=== PATIENT | male | born 1965 | race African-American/Black ===

== ENCOUNTER → 2017-01-06 | Outpatient (CLI) | payer BC ==
--- NOTE | 2017-01-06 10:35 | KCIC ---
MRI Brain without contrast History: Episodic cluster headache, left ptosis, left eye sensitivity to light, symptoms for 2 to 3 months Technique: Multiplanar, multi sequential noncontrast MR imaging was performed of the brain. Comparison: None Findings: There is no evidence of recent infarct or cytotoxic edema. The ventricles, sulci, and cisterns are within normal limits in size and configuration. There is no significant midline shift, intraaxial mass effect, or focal abnormal extra-axial fluid collection. There are few scattered foci of T2 and FLAIR hyperintense signal of the bifrontal white matter, also very mild T2 and FLAIR hyperintense signal abnormality of the carole. There is no hemosiderin deposition of the brain parenchyma. There is preservation of the major intracranial flow-voids at the skull base. The cerebellar tonsils are normal in location. There is no significant abnormality of the pineal gland or pituitary gland. There is patchy minimal bilateral ethmoid air cell mucosal thickening. 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 There is mild diffuse thickening bilateral mastoid air cells. There is preserved marrow signal of the clivus. There is nonspecific increased CSF signal of the optic nerve sheaths bilaterally. Impression: 1. A few scattered small foci of T2 and FLAIR hyperintense abnormality of the frontal lobes are nonspecific. White matter changes can be seen in patients with migraine headaches. There is also very mild T2 and FLAIR hyperintense abnormality of the carole. Potentially findings could be due to chronic microvascular ischemic disease. There is nonspecific increased CSF signal of the optic nerve sheaths bilaterally which may be incidental unless there is clinical suspicion for intracranial hypertension, pituitary gland considered within normal limits. MRA Brain History: Episodic cluster headache, left ptosis, left eye sensitivity to light, symptoms for 2 to 3 months Technique: 3-D [id number] MR angiography was performed of the brain. Comparison: None Contrast: None Findings: Determination of any degree of stenosis is based on NASCET criteria. There is motion degradation. Both vertebral arteries constitute the basilar artery. Vertebral and basilar arteries are somewhat small in caliber presumably due to the presence of bilateral posterior communicating arteries. There is visualization of segments bilateral PICAs and left AICA, right AICA not well visualized. There is visualization of bilateral superior cerebellar arteries and posterior communicating arteries. There is shared origin of the left superior cerebellar artery and left P1 segment, also apparently of the right P1 segment. There is flow within a normal caliber anterior communicating artery. There is flow within bilateral anterior, middle, and posterior cerebral arteries. Flow is seen in the petrous, cavernous, and supraclinoid internal carotid arteries. There is tortuosity of visualized distal cervical internal carotid arteries bilaterally. No large arteriovenous malformation is identified. There is no significant focal stenosis. 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 Impression: 1. 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 2. No significant intracranial stenosis is identified. Electronically signed by: Matthew Herrera MD (01/06/2017 10:32 AM) [id number]
== END ==
LOC: KCIC MRI 09:06
PROVIDERS: ATTEND Psychiatry & Neurology Neurology with Special Qualifications in Child Neurology
DX: I67.1 Cerebral aneurysm, nonruptured (principal); G93.89 Other specified disorders of brain
CPT/HCPCS: 70544; 70551

== ENCOUNTER → 2017-06-28 | Outpatient (CLI) | payer BC ==
[~2017-06-28] MED LIST: CONTRAST GIVEN MC
[2017-06-28] MEDS: IOHEXOL 300 MG/ML 100ML VIAL. IV (08:46)
== END | disposition home or self-care (01) ==
LOC: KCIC CT 08:05
DX: I67.1 Cerebral aneurysm, nonruptured (principal)
CPT/HCPCS: 70496; Q9967

== ENCOUNTER → 2018-01-23 | Outpatient (CLI) | payer BC ==
[2018-01-23] MEDS: IOHEXOL 300 MG/ML 100ML VIAL. IV (10:20)
== END | disposition home or self-care (01) ==
LOC: KCIC CT 09:13
DX: I67.1 Cerebral aneurysm, nonruptured (principal)
CPT/HCPCS: 70496; Q9967